=== PATIENT | male | born 1955 | race African-American/Black ===

== ENCOUNTER 2020-09-18 20:25 | Emergency (ER) | payer MEDICARE ==
[2020-09-18 20:34] VITALS: RESP 18; TEMP 98.1
[2020-09-18] MEDS ORDERED: LIDOCAINE 1% INJ 10MG/ML (20 ML MDV) SQ ONE (20:42)
[2020-09-18] MEDS ORDERED: DIPH,PERTUS(ACELL)TETVAC-LF 0.5 ML VIAL IM ONE (20:52)
--- NOTE | 2020-09-18 21:04 | ED ---
Skin/Abscess/FB HPI - General Chief complaint: Skin/Abscess/Foreign Body Stated complaint: fish hook in finger Time Seen by Provider: 09/18/20 20:35 Source: patient Mode of arrival: ambulatory Limitations: no limitations - History of Present Illness Initial comments: 65 year-old male patient presents to the emergency department for evaluation of fish hook foreign body to the right middle finger. Patient states it became lodged about an hour ago. He did attempt to get it out but was unsuccessful. Reports local pain, but denies any radiating pain, numbness, or tingling. Denies any other injuries or concerns. Tetanus is not up to date. - Related Data Allergies Allergy/AdvReac Type Severity Reaction Status Date / Time No Known Allergies Allergy Verified 09/18/20 20:30 Review of Systems ROS Statement: Those systems with pertinent positive or pertinent negative responses have been documented in the HPI. ROS Other: All systems not noted in ROS Statement are negative. Past Medical History Past Medical History: No Reported History History of Any Multi-Drug Resistant Organisms: None Reported Past Surgical History: No Surgical Hx Reported Smoking Status: Current some day smoker Past Alcohol Use History: Occasional Past Drug Use History: Marijuana General Exam Limitations: no limitations General appearance: alert, in no apparent distress Respiratory exam: Present: normal lung sounds bilaterally. Absent: respiratory distress, wheezes, rales, rhonchi, stridor Cardiovascular Exam: Present: regular rate, normal rhythm, normal heart sounds. Absent: systolic murmur, diastolic murmur, rubs, gallop, clicks Extremities exam: Present: full ROM, normal capillary refill, other (Fish hook foreign body noted to the palmar surface, right middle finger, over the middle phalanx.). Absent: normal inspection, tenderness, pedal edema, joint swelling, calf tenderness Course Vital Signs 09/18/20 09/18/20 20:28 21:08 Temperature 98.1 F Pulse Rate 108 H 87 Respiratory 18 18 Rate Blood Pressure 196/121 187/104 O2 Sat by Pulse 99 98 Oximetry Procedures - [place] Body Removal Soft Tissue Consent Obtained: verbal consent Site: hand Anesthetic Used: lidocaine 1% Amount (mLs): 3 Foreign Body Suspected: Fish Hook Foreign Body Removed: yes Foreign Body Removal Technique: Other (push through technique) Patient Tolerated Procedure: well, no complications Medical Decision Making - Medical Decision Making 65-year-old male patient presented to the emergency department today for evaluation of fishhook foreign body to the right middle finger. [place] was removed. Patient tolerated the procedure well. Did have elevated blood pressure in the department. He does take blood pressure medication. He is having no symptoms currently. He is instructed to keep a log of blood pressures for his primary care physician follow-up with the next 1-2 days for further evaluation and possible medication change. Return parameters were discussed in detail. He verbalizes understanding and agrees with this plan. My attending is Dr. Chappell Clinical Impression: Fish hook injury of right middle finger Disposition: HOME SELF-CARE Condition: Good Instructions (If sedation given, give patient instructions): Soft Tissue Foreign Body (ED) Additional Instructions: Keep wound clean and dry. Follow up with your primary care physician for recheck in 1-2 days. Return for any new, worsening, or concerning symptoms. Is patient prescribed a controlled substance at d/c from ED?: No Referrals: Jb Valverde MD [Primary Care Provider] - 1-2 days Time of Disposition: 21:04
[2020-09-18 21:10] VITALS: BP 187/104; PULSE 87
== END 2020-09-18 21:24 | disposition home or self-care (01) ==
LOC: EC 20:25
DX: S69.91XA Unspecified injury of right wrist, hand and finger(s), initial encounter (principal); F17.200 Nicotine dependence, unspecified, uncomplicated; W45.8XXA Other foreign body or object entering through skin, initial encounter
CPT/HCPCS: 90715; 99282; 90471; J2001